=== PATIENT | female | born 1965 | race African-American/Black ===

== ENCOUNTER 2016-06-10 09:38 | Day surgery (SDC) | payer OTHER ==
[2016-06-10] MEDS ORDERED: LACTATED RINGERS 1,000 ML IV ONE (09:59)
[2016-06-10] MEDS ORDERED: SIMETHICONE 40 MG/0.6 ML 30 ML BOTTLE PO ONE (10:37)
[2016-06-10] MEDS ORDERED: fentaNYL 250 MCG/5 ML VIAL IVP ONE (11:11)
[2016-06-10] MEDS ORDERED: MIDAZOLAM 2 MG/2 ML VIAL IVP ONE (11:11)
== END 2016-06-10 09:39 | disposition home or self-care (01) ==
PROC: 0DJD8ZZ Inspection of Lower Intestinal Tract, Via Natural or Artificial Opening Endoscopic (ICD-10-PCS; principal; 2016-06-10 10:45)
PROC: 0DB68ZX Excision of Stomach, Via Natural or Artificial Opening Endoscopic, Diagnostic (ICD-10-PCS; 2016-06-10 10:45)
DX: Z12.11 Encounter for screening for malignant neoplasm of colon (principal); K21.9 Gastro-esophageal reflux disease without esophagitis; K57.30 Diverticulosis of large intestine without perforation or abscess without bleeding; K64.8 Other hemorrhoids; K44.9 Diaphragmatic hernia without obstruction or gangrene; J30.9 Allergic rhinitis, unspecified; I10 Essential (primary) hypertension; Z80.1 Family history of malignant neoplasm of trachea, bronchus and lung; Z82.49 Family history of ischemic heart disease and other diseases of the circulatory system
CPT/HCPCS: 43239; 45378; 87081; A9270; J3010; J7120

== ENCOUNTER 2016-10-08 09:43 | Outpatient (CLI) | payer OTHER ==
--- NOTE | 2016-10-11 10:28 | Mammography Report ---
DIGITAL BILATERAL SCREENING MAMMOGRAM: 10/08/2016 CLINICAL HISTORY: A 51-year-old female in for routine screening mammogram. Patient has no family hi story of breast cancer. Patient has had no history of breast surgeries. COMPARISON: 01/27/2008, 07/24/2009, 10/07/2011, 10/27/2012, 11/18/2013, 11/18/2014. TECHNIQUE: Craniocaudad and oblique lateral views of each breast were obtained with [facility] Full Fie ld digital mammography. Axillary exaggerated craniocaudad views of both breasts were added to complem ent the examination. FINDINGS: Breast parenchyma consists of scattered fibroglandular densities. No significant clusters of calcification are seen. There is an asymmetrical density measuring 1.4 cm in the 2 o'clock positio n of the left breast that was not definitely seen on preceding exams. It is 8-9 cm posterior superior to the left nipple. Recommend patient return for coned down compression craniocaudad and oblique lat eral views as well as a mediolateral view for further evaluation. If indicated, left breast ultrasoun d should also be obtained. No other changes are seen. IMPRESSION: AN 1.4 CM ASYMMETRICAL DENSITY IS NOW NOTED IN THE 2 O'CLOCK POSITION OF THE LEFT BREAST . THIS WAS NOT SEEN ON PRECEDING EXAMS. RECOMMEND PATIENT RETURN FOR ADDITIONAL VIEWS OF THE LEFT SAMY AST AND, IF INDICATED, LEFT BREAST ULTRASOUND. BIRADS CATEGORY 0-INCOMPLETE. NEEDS ADDITIONAL IMAGING EVALUATION. ADDITIONAL VIEW OF THE LEFT BREAST AND, IF INDICATED, LEFT BREAST ULTRASOUND. STANDARD QUALIFYING STATEMENTS 1. This examination was reviewed with the aid of Computer-Aided Detection (CAD). 2. A negative or benign imaging report should not delay biopsy if clinically suspicious findings are present. Consider surgical consultation if warranted. More than 5% of cancers are not identified by i maging. 3. Dense breasts may obscure an underlying neoplasm. JOB #: [id number] EXT JOB #:[id number]
== END 2016-10-08 09:44 | disposition home or self-care (01) ==
LOC: DI.N 09:43
PROVIDERS: ATTEND Family Medicine
DX: Z12.31 Encounter for screening mammogram for malignant neoplasm of breast (principal); R92.8 Other abnormal and inconclusive findings on diagnostic imaging of breast
CPT/HCPCS: 77067

== ENCOUNTER 2016-10-17 13:50 | Outpatient (CLI) | payer OTHER | END 2016-10-17 13:51 | disposition home or self-care (01) | LOC: SC 13:50 | PROVIDERS: ATTEND Nurse Practitioner Family | DX: G47.33 Obstructive sleep apnea (adult) (pediatric) (principal) | CPT/HCPCS: 99212; 99214 ==

== ENCOUNTER 2016-10-31 10:57 | Outpatient (CLI) | payer OTHER ==
--- NOTE | 2016-10-31 18:53 | Mammography Report ---
DIGITAL DIAGNOSTIC LEFT MAMMOGRAM: 10/31/2016 CLINICAL INDICATION: Possible developing density left central posterior breast. COMPARISON: 10/08/2016, 11/18/2014, 11/18/2013, 10/27/2012, 10/07/2011, 10/03/2010, 07/24/2009. TECHNIQUE: Left true lateral and spot compression views. The left breast again demonstrates scattered fibroglandular densities. The possible asymmetry in the left posterior central breast does not persist on additional compression. No underlying mass lesion or architectural distortion is identified. IMPRESSION: NEGATIVE EXAMINATION. RECOMMENDATION: ROUTINE ANNUAL SCREENING UNLESS OTHERWISE CLINICALLY INDICATED. BIRADS CATEGORY: 1, NEGATIVE. STANDARD QUALIFYING STATEMENTS 1. This examination was reviewed with the aid of Computed-Aided Detection (CAD). 2. A negative or benign imaging report should not delay biopsy if clinically suspicious findings are present. Consider surgical consultation if warranted. More than 5% of cancers are not identified b y imaging. 3. Dense breasts may obscure an underlying neoplasm. JOB #: [id number] EXT JOB #:[id number]
== END 2016-10-31 10:58 | disposition home or self-care (01) ==
LOC: DI 10:57
PROVIDERS: ATTEND Family Medicine
DX: N63 Unspecified lump in breast (principal)

== ENCOUNTER 2016-11-19 15:26 | Outpatient (CLI) | payer OTHER ==
--- NOTE | 2016-11-19 17:01 | Ultrasound Preliminary Report ---
Exam: US Duplex Ext Veins Right IMPRESSION: No evidence for deep venous thrombosis. [facility] SITE ID: [id number]
--- NOTE | 2016-11-19 17:04 | Ultrasound Report ---
EXAM: RIGHT LOWER EXTREMITY VENOUS ULTRASOUND EXAM DATE: 11/19/2016 04:42 PM. CLINICAL HISTORY: CALF PAIN, RIGHT. COMPARISON: None. TECHNIQUE: Real-time sonographic vascular imaging was performed by the quality assurance consultant through the lower extremity utilizing both color-flow and Doppler spectral analysis. Multiple nutrition representative static deon ges were saved for review. FINDINGS: Common Femoral Vein (CFV): Normal. CFV-GSV Junction: Normal. Profunda Femoral Vein (PFV): Normal. Femoral Vein (FV) Prox: Normal. Femoral Vein (FV) Mid: Normal. Femoral Vein (FV) Dist: Normal. Popliteal Vein: Normal. Posterior Tibial Veins: Normal. Peroneal Veins: Normal. Contralateral Side CFV: Normal. Other: None. IMPRESSION: No evidence for deep venous thrombosis. [facility] Referring Provider Line: [phone] SITE ID: [id number]
== END 2016-11-19 15:27 | disposition home or self-care (01) ==
LOC: DI 15:26
PROVIDERS: ATTEND Physician Assistant Medical
DX: M79.661 Pain in right lower leg (principal)

== ENCOUNTER 2016-11-27 13:08 | Outpatient (CLI) | payer OTHER ==
--- NOTE | 2016-11-28 08:59 | Ultrasound Report ---
BILATERAL ABIs: 11/27/2016 CLINICAL INDICATION: Right calf pain. TECHNIQUE: Real-time sonographic vascular imaging was performed by the machinist helper through the extremities utilizing both color-flow and Doppler flow analysis. Multiple sales representative sales manager static images were saved for review. RIGHT SIDE SITE [employer] DRIVER 54 triphasic DPA 58 triphasic LEFT SIDE SITE PSV [employer] DR[employer] 71 triphasic DPA 48 triphasic TECHNIQUE: Real-time scanning was performed. SYSTOLIC PRESSURES RIGHT LEFT BRACHIAL ARTERY 144/74 154/91 POSTERIOR TIBIAL ARTERY 167/86 165/77 ANTERIOR TIBIAL ARTERY --- --- PERONEAL ARTERY --- --- ANKLE/ARM INDEX 1.16 1.07 FINDINGS: ABIs are normal, measuring 1.16 on the right and 1.07 on the left. IMPRESSION: NORMAL ABIs. [facility]
== END 2016-11-27 13:09 | disposition home or self-care (01) ==
LOC: DI 13:08
PROVIDERS: ATTEND Physician Assistant Medical
DX: M79.661 Pain in right lower leg (principal)
CPT/HCPCS: 93922

== ENCOUNTER 2017-04-01 14:29 | Outpatient (CLI) | payer OTHER | END 2017-04-01 14:30 | disposition home or self-care (01) | LOC: SC 14:29 | PROVIDERS: ATTEND Nurse Practitioner Family | DX: G47.33 Obstructive sleep apnea (adult) (pediatric) (principal); I10 Essential (primary) hypertension | CPT/HCPCS: 99212; 99214 ==

== ENCOUNTER 2017-06-12 13:32 | Outpatient (CLI) | payer OTHER | END 2017-06-12 13:33 | disposition home or self-care (01) | LOC: SC 13:32 | PROVIDERS: ATTEND Nurse Practitioner Family | DX: G47.33 Obstructive sleep apnea (adult) (pediatric) (principal) | CPT/HCPCS: 99212; 99215 ==

== ENCOUNTER 2017-07-28 15:41 | Outpatient (CLI) | payer OTHER | END 2017-07-28 15:42 | disposition home or self-care (01) | LOC: SC 15:41 | PROVIDERS: ATTEND Nurse Practitioner Family | DX: G47.33 Obstructive sleep apnea (adult) (pediatric) (principal) | CPT/HCPCS: 99212; 99214 ==

== ENCOUNTER 2017-09-01 15:11 | Outpatient (CLI) | payer OTHER | END 2017-09-01 15:12 | disposition home or self-care (01) | LOC: SC 15:11 | PROVIDERS: ATTEND Nurse Practitioner Family | DX: G47.33 Obstructive sleep apnea (adult) (pediatric) (principal) | CPT/HCPCS: 99214 ==

== ENCOUNTER 2017-10-09 13:48 | Outpatient (CLI) | payer OTHER | END 2017-10-09 13:49 | disposition home or self-care (01) | LOC: SC 13:48 | PROVIDERS: ATTEND Nurse Practitioner Family | DX: G47.33 Obstructive sleep apnea (adult) (pediatric) (principal) | CPT/HCPCS: 99212; 99214 ==

== ENCOUNTER 2017-11-12 10:39 | Outpatient (CLI) | payer OTHER ==
--- NOTE | 2017-11-13 16:19 | Mammography Report ---
Procedure Date: 11/12/2017 Accession Number: [id number] / [id number] Procedure: MGN - Screening Mammo Dig Bilat CPT Code: FULL RESULT: EXAM: Screening Mammo Dig Bilat DATE: 11/12/2017 10:56 AM CLINICAL HISTORY: 52-year-old female with history of late childbearing presents for screening mammogram. TECHNIQUE: Bilateral CC and MLO views were obtained. COMPARISON: 10/08/2016, 11/18/2014, 11/18/2013, 10/27/2012. FINDINGS: The breasts demonstrate scattered fibroglandular densities bilaterally. Coarse typically benign calcifications are identified. No suspicious masses, clustered microcalcifications, or regions of architectural distortion are identified. IMPRESSION: Benign findings RECOMMENDATION: Routine annual screening unless otherwise clinically indicated. BIRADS CATEGORY 2: Benign findings STANDARD QUALIFYING STATEMENTS: 1. This examination was reviewed with the aid of Computer-Aided Detection (CAD). 2. A negative or benign imaging report should not delay biopsy if clinically suspicious findings are present. Consider surgical consultation if warrented. More than 5% of cancers are not identified by imaging. 3. Dense breasts may obscure an underlying neoplasm.
== END 2017-11-12 10:40 | disposition home or self-care (01) ==
LOC: DI.N 10:39
PROVIDERS: ATTEND Physician Assistant Medical
DX: Z12.31 Encounter for screening mammogram for malignant neoplasm of breast (principal)
CPT/HCPCS: 77067

== ENCOUNTER 2018-12-02 08:33 | Outpatient (CLI) | payer OTHER ==
--- NOTE | 2018-12-03 09:54 | Mammography Report ---
Reason: SCREENING MAMMO Procedure Date: 12/02/2018 Accession Number: [id number] / [id number] Procedure: MGN - Screening Mammo Dig Bilat CPT Code: FULL RESULT: EXAM: Screening Mammo Dig Bilat DATE: 12/02/2018 8:56 AM CLINICAL HISTORY: Screening encounter. History of late childbearing and early menses. TECHNIQUE: (B) - Bilateral CC, laterally exaggerated CC, MLO views were obtained. COMPARISON: 11/12/2017 through 11/18/2013. PARENCHYMAL PATTERN: (D) - The breast(s) demonstrate(s) heterogeneously dense fibroglandular parenchyma. FINDINGS: There are coarse typically benign calcifications. There are no suspicious masses, calcifications, or areas of distortion. IMPRESSION: Benign findings. BI-RADS category 2. RECOMMENDATION: (ANNUAL) - Recommend routine annual screening mammography. BI-RADS CATEGORY: (2) - Benign Findings. STANDARD QUALIFYING STATEMENTS: 1. This examination was not reviewed with the aid of Computer-Aided Detection (CAD). 2. A negative or benign imaging report should not preclude biopsy if clinically suspicious findings are present. 3. Dense breasts may obscure an underlying neoplasm. 4. This examination was reviewed without the aid of 3D breast imaging (tomosynthesis).
== END 2018-12-02 08:34 | disposition home or self-care (01) ==
LOC: DI.N 08:33
DX: Z12.31 Encounter for screening mammogram for malignant neoplasm of breast (principal)
CPT/HCPCS: 77067

== ENCOUNTER 2019-09-16 10:42 | Outpatient (CLI) | payer OTHER ==
--- NOTE | 2019-09-16 20:59 | XRAY Report ---
Reason: MEDIAL COLLATERAL LIGAMENT INSTABILITY Procedure Date: 09/16/2019 Accession Number: [id number] / [id number] Procedure: XR - Knee 3 View RT CPT Code: Final Report FULL RESULT: EXAM: RIGHT KNEE RADIOGRAPHY EXAM DATE: 09/16/2019 10:58 AM. CLINICAL HISTORY: MEDIAL COLLATERAL LIGAMENT INSTABILITY. COMPARISON: None. TECHNIQUE: 3 views. FINDINGS: Bones: Old infarct versus enchondroma and proximal right lateral tibial metaphysis. No fractures or bone lesions. Joints: Normal. No effusion. No subluxations. Soft Tissues: Normal. No soft tissue swelling. IMPRESSION: No acute osseous or articular abnormality. [facility]
== END 2019-09-16 10:43 | disposition home or self-care (01) ==
LOC: DI 10:42
PROVIDERS: ATTEND Family Medicine
DX: M23.8X9 Other internal derangements of unspecified knee (principal)

== ENCOUNTER 2020-03-09 11:05 | Outpatient (CLI) | payer OTHER ==
--- NOTE | 2020-03-09 14:30 | XRAY Report ---
PROCEDURE: Knee 4 View RT INDICATIONS: MEDIAL MENISCUS TEAR, RT TECHNIQUE: 4 views of the right knee(s) were acquired. COMPARISON: 09/16/2019 FINDINGS: Bones: No acute fractures or dislocations. Minimal tricompartmental degenerative changes of the rig ht knee. Small distal quadriceps enthesophyte at the superior pole of the patella. Stable sclerotic f ocus overlying the lateral tibial plateau. Otherwise, no suspicious bony lesions. Soft tissues: No joint effusion. No suspicious soft tissue calcifications. IMPRESSION: 1. Minimal tricompartmental osteoarthrosis of the right knee. 2. Distal quadriceps enthesopathy. 3. Stable size and appearance of lateral tibial plateau sclerotic focus. Reviewed by: Nilton Casanova MD on 03/09/2020 2:29 PM PST Approved by: Nilton Casanova MD on 03/09/2020 2:29 PM PST Station ID: [id number]
== END 2020-03-09 23:59 | disposition home or self-care (01) ==
LOC: DI.N 11:05
PROVIDERS: ATTEND Orthopaedic Surgery
DX: S83.241A Other tear of medial meniscus, current injury, right knee, initial encounter (principal); M17.11 Unilateral primary osteoarthritis, right knee

== ENCOUNTER 2020-03-13 07:19 | Outpatient (CLI) | payer OTHER ==
[2020-03-13 11:36] LABS: BASOPHILS % (AUTO) 0.8 %; EOSINOPHILS # (AUTO) 0.2 10^3/uL (0.0-0.7); EOSINOPHILS % (AUTO) 4.8 %; HGB - HEMOGLOBIN 12.7 g/dL (12.0-16.0); LYMPHOCYTES # (AUTO) 1.5 10^3/uL (1.5-3.5); LYMPHOCYTES % (AUTO) 40.3 %; MEAN CORPUSCULAR HEMOGLOBIN 29.1 pg (27.0-31.0); MEAN CORPUSCULAR HGB CONC 31.9 g/dL (32.0-36.0); MEAN CORPUSCULAR VOLUME 91.3 fL (81.0-99.0); MEAN PLATELET VOLUME 12.9 fL (7.9-10.8); MONOCYTES # (AUTO) 0.4 10^3/uL (0.0-1.0); MONOCYTES % (AUTO) 11.2 %; NEUTROPHILS # (AUTO) 1.6 10^3/uL (1.5-6.6); NEUTROPHILS % (AUTO) 42.9 %; PLT - PLATELET COUNT 123 10^3/uL (130-450); RED BLOOD COUNT 4.36 10^6/uL (4.20-5.40); RED CELL DISTRIBUTION WIDTH 14.9 % (12.0-15.0); WHITE BLOOD COUNT 3.8 x10^3/uL (4.8-10.8)
[2020-03-13 12:11] LABS: ALBUMIN 3.8 g/dL (3.2-5.5); ALBUMIN/GLOBULIN RATIO 1.2 (1.0-2.2); ALKALINE PHOSPHATASE 56 IU/L (42-121); ALT ALANINE AMINOTRANSFERASE 21 IU/L (10-60); AST ASPARTATE AMINOTRANSFERASE 20 IU/L (10-42); BILIRUBIN,TOTAL 0.9 mg/dL (0.2-1.0); BUN - BLOOD UREA NITROGEN 14 mg/dL (6-20); CALCIUM 9.3 mg/dL (8.5-10.3); CARBON DIOXIDE - CO2 26 mmol/L (21-32); CHLORIDE 104 mmol/L (101-111); CHOL/HDL RATIO 2.4 (<4.4); CHOLESTEROL 178 mg/dL; CREATININE 0.8 mg/dL (0.4-1.0); GLUCOSE 88 mg/dL (70-100); HDL CHOLESTEROL 74 mg/dL; LDL CHOLESTEROL,CALCULATED 93 mg/dL; LDL/HDL RATIO 1.3 (<4.4); SODIUM 139 mmol/L (135-145); TOTAL PROTEIN 6.9 g/dL (6.7-8.2); VLDL CHOLESTEROL 11 mg/dL
== END 2020-03-13 07:20 | disposition home or self-care (01) ==
LOC: LAB.WCP 07:19
PROVIDERS: ATTEND Family Medicine
DX: I10 Essential (primary) hypertension (principal); D69.49 Other primary thrombocytopenia; R53.83 Other fatigue
CPT/HCPCS: 36415; 80053; 80061; 83721; 84443; 85025

== ENCOUNTER 2020-05-05 07:45 | Outpatient (CLI) | payer OTHER | END 2020-05-05 07:46 | disposition home or self-care (01) | LOC: LAB.R 07:45 | PROVIDERS: ATTEND Orthopaedic Surgery | DX: Z01.812 Encounter for preprocedural laboratory examination (principal); Z20.822 Contact with and (suspected) exposure to COVID-19 ==

== ENCOUNTER 2020-05-10 10:02 | Day surgery (SDC) | payer OTHER ==
[~2020-05-10 10:02] MED LIST: LACTATED RINGERS 1,000 ML IV ONE
--- NOTE | 2020-05-10 10:46 | ANESTHESIA ---
Pre-Anesthesia VS, & Labs - Diagnosis torn right medial meniscus - Procedure right knee arthroscopy, parial medial meniscectomy Height: 5 ft 5 in Weight (kg): 91.9 kg Body Mass Index: 33.7 BMI Classification: Obese - NPO >8 hours - Is Patient ?: Not Applicable - Lab Results Lab results reviewed: Yes Home Medications and Allergies Home Medications: Ambulatory Orders Amlodipine Besylate [Norvasc] 10 mg PO QPM 05/05/20 Ascorbic Acid [Vitamin C] 1,000 mg PO DAILY 05/05/[address] [Voltaren] 75 mg PO DAILY 05/05/20 Omeprazole 20 mg PO BID 05/05/20 Multivitamin [Multivitamins] 1 each PO DAILY 06/10/16 Amlodipine Besylate [Norvasc] 10 mg PO QPM 05/05/20 Ascorbic Acid [Vitamin C] 1,000 mg PO DAILY 05/05/[address] [Voltaren] 75 mg PO DAILY 05/05/20 Omeprazole 20 mg PO BID 05/05/20 Allergies/Adverse Reactions: Allergies Allergy/AdvReac Type Severity Reaction Status Date / Time acetaminophen [From Vicodin] Allergy Itching Verified 05/09/20 13:47 hydrocodone [From Vicodin] Allergy Itching Verified 05/09/20 13:47 pollen extracts Allergy Rash Verified 05/09/15 07:24 venom-honey bee Allergy Anaphylaxis Verified 05/09/15 07:24 [bee venom (honey bee)] lisinopril AdvReac Unknown Verified 05/09/15 07:24 Anes History & Medical History - Anesthetic History Anesthesia Complications: reports: No previous complications Family history of Anesthesia Complications: Denies Family history of Malignant Hyperthermia: Denies - Medical History Cardiovascular: reports: Hypertension, Other Pulmonary: reports: Sleep apnea Gastrointestinal: reports: GERD, Hiatal hernia Urinary: reports: None Musculoskeletal: reports: Osteoarthritis, Other Endocrine/Autoimmune: reports: None Blood Disorders: reports: Idiopathic thrombocytopenic purpura Skin: reports: None Smoking Status: Never smoker - Surgical History General: Cholecystectomy, Colonoscopy, EGD Gynecologic: Hysterectomy Exam General: Alert, Oriented x3, Cooperative, No acute distress Dental: WNL Mouth Openin Fingerbreadth Neck Mobility: Normal Mallampati classification: II Respiratory: Lungs clear, Normal breath sounds, No respiratory distress, No accessory muscle use Cardiovascular: Regular rate, Normal S1, Normal S2, No murmurs Plan Anesthesia Type: General Consent for Procedure(s) Verified and Reviewed: Yes Code Status: Attempt Resuscitation ASA classification: 2-Mild systemic disease Is this case an emergency?: No
[2020-05-10] MEDS ORDERED: fentaNYL 100 MCG/2 ML VIAL IVP PRN (10:53)
[2020-05-10] MEDS ORDERED: ePHEDrine 50 MG/ML VIAL IVP PRN (10:53)
[2020-05-10] MEDS ORDERED: METOCLOPRAMIDE 10 MG/2 ML VIAL IVP PRN (10:53)
[2020-05-10] MEDS ORDERED: ATROPINE ABBOJECT 1 MG/10 ML SYRINGE IVP PRN (10:53)
[2020-05-10] MEDS ORDERED: NALOXONE 0.4 MG/ML VIAL IVP PRN (10:53)
[2020-05-10] MEDS ORDERED: MORPHINE 2 MG/ML CARPUJECT IVP PRN (10:53)
[2020-05-10] MEDS ORDERED: ONDANSETRON 4 MG/2 ML VIAL IVP PRN (10:53)
[2020-05-10] MEDS ORDERED: LACTATED RINGERS 1,000 ML IV SCH (11:00)
[2020-05-10] MEDS ORDERED: EPINEPHrine 1 MG/ML AMP ONE (11:36)
[2020-05-10] MEDS ORDERED: BUPIVACAINE 0.25% PF 30 ML VIAL ONE (11:37)
[2020-05-10] MEDS ORDERED: MIDAZOLAM 2 MG/2 ML VIAL ONE (11:45)
[2020-05-10] MEDS ORDERED: ONDANSETRON 4 MG/2 ML VIAL ONE (11:45)
[2020-05-10] MEDS ORDERED: LIDOCAINE-MPF 2% 5 ML VIAL ONE (11:45)
[2020-05-10] MEDS ORDERED: fentaNYL 100 MCG/2 ML VIAL ONE ×3 (11:45→13:14)
[2020-05-10] MEDS ORDERED: PROPOFOL 200 MG/20 ML VIAL IVP ONE (11:45)
[2020-05-10] MEDS ORDERED: ACETAMINOPHEN 1,000 MG/100 ML 100 ML IV ONE (12:19)
[2020-05-10] MEDS ORDERED: EPINEPHrine 1 MG/ML AMP IR ONE (12:23)
[2020-05-10] MEDS ORDERED: BACITRACIN ZINC OINT 1 PACKET TOP ONE (12:23)
[2020-05-10] MEDS ORDERED: DEXAMETHASONE 4 MG/ML VIAL ONE (12:26)
--- NOTE | 2020-05-10 12:59 | OPERATIVE REPORT ---
Operative Report - General Procedure Date: 05/10/20 Planned Procedure: Arthroscopy right knee with possible meniscectomy right knee Pre-Op Diagnosis: Degenerative tear medial meniscus right knee Procedure Performed: Arthroscopy right knee, debridement And chondroplastypatella right knee Post Op Diagnosis: Patellar chondromalacia right knee - Procedure Note Primary Surgeon: Leo Delgado MD Secondary Surgeon: Adryan BONILLA Anesthesia Provider: Chanda Pena CRNA Anesthesia Technique: General ET tube Estimated Blood Loss (mL): 5 Indications: This is a 54-year-old woman with injury to her right knee and persistent pain. Her pain to the right knee has been mostly medial sometimes anteromedial as well. We have tried conservative treatment over the past several months and she still has not improved. Her routine radiographs are normal but her MRI scan suggested a torn posterior horn medial meniscus consistent with a degenerative/traumatic tear of the medial meniscus. She did have some definite joint line tenderness medially. She did have symptoms of internal derangement in addition to pain. Findings: She is loose jointed and can slightly hyperextend both knees. She has full motion of both knees. The right knee was ligamentously stable. Her arthroscopic examination revealed a nonspecific suprapatellar synovitis. There was grade 2/4 chondromalacia to the lower or inferior half of the patella. The medial and lateral gutters appeared normal. The anterior and posterior cruciate ligaments were intact. The articular cartilage of the tibiofemoral joint was normal. Both the medial and lateral meniscus were normal and were stable to meniscal traction and probing. There was no sign of a meniscal root tear. Complications: None noted - Other Other Information/Narrative: The patient was brought to the operating room and given a general endotracheal anesthetic. The right knee was examined under anesthesia and was found to be s table. The pneumatic tourniquet was applied to the proximal right thigh over cast padding and secured with a U drape. The right lower extremity was prepped and draped in a sterile manner in the usual fashion. An arthroscopic post was applied to the lateral aspect of the right thigh. A timeout procedure was performed by the entire operating room team and all were in agreement. A 3 portal arthroscopic technique was utilized. Outflow was taken through the lateral suprapatellar portal. The anterolateral portal was used for the diagnostic arthroscope. The anteromedial portal was used for instrument portal. The Hamilton 4 mm 30 degree of black diagnostic arthroscope was used in conjunction with [employer] video camera and [employer] arthroscopic pump. Inflow was brought to the arthroscope using the [employer] arthroscopic pump. Complete diagnostic arthroscopy was performed and was facilitated by the use of an arthroscopic probe. The findings have been documented. The abnormal findings were confined to the patellofemoral joint with grade II chondromalacia involving both patella and femoral trochlea. The medial and lateral menisci were probed as well as the cruciate ligaments. The structures were found to be intact. The medial meniscus was carefully inspected and stressed with traction and probing without finding any peripheral tears or any tears within the body of the medial meniscus. A chondroplasty was performed using the Tiffanie radiofrequency probe with a light brushing technique, care taken to avoid contact with patella or trochlea. The incision sites were closed with 3-0 nylon, sterile dressings applied with Irwin wrap to right knee. Patient tolerated procedure well. Tourniquet was not inflated during the procedure. Physician assistant to the ceo was utilized and felt to be necessary to help manipulate the knee to provide adequate visualization for the arthroscopic procedure, wound closure and dressing.
[2020-05-10] MEDS ORDERED: HYDROcod/ACETAM 10 MG/325 MG TABLET PO PRN (13:08)
[2020-05-10] MEDS ORDERED: KETOROLAC 15 MG/ML VIAL IVP STA (13:08)
[2020-05-10] MEDS ORDERED: LACTATED RINGERS 1,000 ML IV ONE (13:13)
[2020-05-10] MEDS ORDERED: KETOROLAC 30 MG/ML VIAL ONE (13:13)
[2020-05-10] MEDS: HYDROmorphone 0.5 MG/0.5 ML SYRINGE IVP PRN ×2 (13:26→13:36)
[2020-05-10] MEDS ORDERED: HYDROmorphone 1 MG/ML CARPUJECT ONE (13:35)
[2020-05-10] MEDS ORDERED: oxyCODONE 5 MG TABLET PO PRN (13:37)
[2020-05-10] MEDS ORDERED: diphenhydrAMINE INJ 50 MG/ML VIAL ONE (14:09)
[2020-05-10 14:38] VITALS: BP 145/79
[2020-05-10] MEDS ORDERED: oxyCODONE 5 MG TABLET ONE (14:43)
--- NOTE | 2020-05-10 16:29 | ANESTHESIA POST OP EVALUATION ---
Anesthesia Post Eval - Post Anesthesia Eval Vitals: Last Vital Signs Temp 36.3 C L 05/10/20 14:30 Pulse 81 05/10/20 14:30 Resp 16 05/10/20 14:30 BP 145/79 H 05/10/20 14:30 Pulse Ox 100 05/10/20 14:30 CV Function Including HR & BP: positive: Stable Pain Control: positive: Satisfactory Nausea & Vomiting: positive: Negative Mental Status: positive: Baseline Respiratory Status: Airway Patent Hydration Status: Satisfactory Anesthesia Complications: positive: None
== END 2020-05-10 10:03 | disposition home or self-care (01) ==
LOC: SDS 10:02
PROVIDERS: ATTEND Orthopaedic Surgery
DX: M22.41 Chondromalacia patellae, right knee (principal); M65.9 Synovitis and tenosynovitis, unspecified; G47.30 Sleep apnea, unspecified; Z87.891 Personal history of nicotine dependence; M89.9 Disorder of bone, unspecified; E66.9 Obesity, unspecified; Z68.33 Body mass index [BMI] 33.0-33.9, adult; I10 Essential (primary) hypertension; D69.3 Immune thrombocytopenic purpura
CPT/HCPCS: 29877; A9270; J0131; J1170; J1200; J7120

== ENCOUNTER 2020-12-26 07:14 | Outpatient (CLI) | payer OTHER ==
[2020-12-26 12:15] LABS: BASOPHILS % (AUTO) 0.4 %; EOSINOPHILS # (AUTO) 0.1 10^3/uL (0.0-0.7); EOSINOPHILS % (AUTO) 2.5 %; HCT - HEMATOCRIT 42.1 % (37.0-47.0); HGB - HEMOGLOBIN 12.8 g/dL (12.0-16.0); LYMPHOCYTES # (AUTO) 1.7 10^3/uL (1.5-3.5); LYMPHOCYTES % (AUTO) 38.6 %; MEAN CORPUSCULAR HEMOGLOBIN 28.3 pg (27.0-31.0); MEAN CORPUSCULAR HGB CONC 30.4 g/dL (32.0-36.0); MEAN CORPUSCULAR VOLUME 92.9 fL (81.0-99.0); MEAN PLATELET VOLUME 12.8 fL (7.9-10.8); MONOCYTES # (AUTO) 0.5 10^3/uL (0.0-1.0); MONOCYTES % (AUTO) 10.3 %; NEUTROPHILS # (AUTO) 2.2 10^3/uL (1.5-6.6); PLT - PLATELET COUNT 123 10^3/uL (130-450); RED BLOOD COUNT 4.53 10^6/uL (4.20-5.40); RED CELL DISTRIBUTION WIDTH 16.6 % (12.0-15.0); WHITE BLOOD COUNT 4.5 x10^3/uL (4.8-10.8)
[2020-12-26 12:41] LABS: THYROID STIMULATING HORMONE 1.68 uIU/mL (0.34-5.60)
[2020-12-26 13:05] LABS: ALBUMIN 3.8 g/dL (3.2-5.5); ALBUMIN/GLOBULIN RATIO 1.1 (1.0-2.2); ALKALINE PHOSPHATASE 70 IU/L (42-121); ALT ALANINE AMINOTRANSFERASE 19 IU/L (10-60); AST ASPARTATE AMINOTRANSFERASE 17 IU/L (10-42); BILIRUBIN,TOTAL 0.8 mg/dL (0.2-1.0); BUN - BLOOD UREA NITROGEN 9 mg/dL (6-20); CALCIUM 9.7 mg/dL (8.5-10.3); CARBON DIOXIDE - CO2 26 mmol/L (21-32); CHLORIDE 105 mmol/L (101-111); CHOLESTEROL 172 mg/dL; CREATININE 0.9 mg/dL (0.4-1.0); GFR - MDRD 79 (>89); GLUCOSE 82 mg/dL (70-100); HDL CHOLESTEROL 86 mg/dL; LDL CHOLESTEROL,CALCULATED 73 mg/dL; LDL/HDL RATIO 0.8 (<4.4); POTASSIUM 4.1 mmol/L (3.5-5.0); SODIUM 141 mmol/L (135-145); TOTAL PROTEIN 7.2 g/dL (6.7-8.2); TRIGLYCERIDES 65 mg/dL; VLDL CHOLESTEROL 13 mg/dL
== END 2020-12-26 23:59 | disposition home or self-care (01) ==
LOC: LAB.WCP 07:14
PROVIDERS: ATTEND Physician Assistant Medical
DX: Z00.00 Encounter for general adult medical examination without abnormal findings (principal); D69.49 Other primary thrombocytopenia
CPT/HCPCS: 36415; 80053; 80061; 83721; 84443; 85025

== ENCOUNTER 2021-01-13 10:10 | Outpatient (CLI) | payer OTHER ==
--- NOTE | 2021-01-13 11:01 | XRAY Report ---
PROCEDURE: Hip w/Pelvis 2-3V LT INDICATIONS: TROCHANTERIC BURSITIS TECHNIQUE: AP pelvis with lateral view(s) of the left hip(s). COMPARISON: 01/15/2019, 07/18/2015 FINDINGS: Bones: No fractures or dislocations. Pelvic ring appears intact. No suspicious bony lesions. Soft tissues: The visualized bowel gas pattern is normal. No suspicious soft tissue calcifications. IMPRESSION: No significant plain film abnormality is seen. If it would be helpful for clinical management decision making, please consider a dedicated hip MRI f or further evaluation (assuming that there is no contraindication). This should be performed accordi ng to the arthrogram protocol, if there is strong clinical concern for a labral abnormality. Reviewed by: Sandeep Mccurdy MD on 01/13/2021 10:00 AM W[facility] Approved by: Sandeep Mccurdy MD on 01/13/2021 10:00 AM WILY Station ID: [id number]
== END 2021-01-13 10:11 | disposition home or self-care (01) ==
LOC: DI.N 10:10
PROVIDERS: ATTEND Physician Assistant Medical
DX: M70.62 Trochanteric bursitis, left hip (principal)

== ENCOUNTER 2021-10-30 09:31 | Outpatient (CLI) | payer OTHER ==
--- NOTE | 2021-10-30 11:52 | XRAY Report ---
PROCEDURE: Lumbar Spine 2 View INDICATIONS: LUMBAR RADICULOPATHY TECHNIQUE: 3 views of the lumbar spine were acquired. COMPARISON: None. FINDINGS: Bones: 5 [id number] vertebrae are present. Minimal left convexity curvature centered at L3. 2 m m retrolisthesis of L5 on S1, 4 mm retrolisthesis L4 and L5, likely degenerative. Mild multilevel deg enerative changes with disc height loss and endplate spurring, most pronounced at L5-S1. Facet degene rative changes also demonstrated at this level. No vertebral body compression fractures. No suspicio us bony lesions. Soft tissues: Overlying bowel gas pattern is normal. No suspicious soft tissue calcifications. [place] l clips projecting over the right upper quadrant of the abdomen could be from prior cholecystectomy. IMPRESSION: Mild degenerative changes of the lumbar spine most pronounced at L5-S1. Reviewed by: Ace aWshington MD on 10/30/2021 11:50 AM PDT Approved by: Ace Washington MD on 10/30/2021 11:50 AM PDT Station ID: [id number]
== END 2021-10-30 09:32 | disposition home or self-care (01) ==
LOC: DI.N 09:31
PROVIDERS: ATTEND Physician Assistant Medical
DX: M47.816 Spondylosis without myelopathy or radiculopathy, lumbar region (principal); M47.817 Spondylosis without myelopathy or radiculopathy, lumbosacral region; M51.36 Other intervertebral disc degeneration, lumbar region; M51.37 Other intervertebral disc degeneration, lumbosacral region; M43.17 Spondylolisthesis, lumbosacral region

== ENCOUNTER 2021-11-15 08:11 | Outpatient (CLI) | payer OTHER ==
--- NOTE | 2021-11-16 12:35 | Mammography Report ---
BILATERAL DIGITAL SCREENING MAMMOGRAM 3D/2D: 11/15/2021 CLINICAL: Routine screening. Comparison is made to exams dated: 12/02/2018 mammogram, 11/12/2017 mammogram, 10/08/2016 mammogram, mammogram, 11/18/2013 mammogram, and 10/27/2012 mammogram - [facility]. There are scattered fibroglandular elements in both breasts. No significant masses, calcifications, or other findings are seen in either breast. There has been no significant interval change. IMPRESSION: NEGATIVE There is no mammographic evidence of malignancy. A 1 year screening mammogram is recommended. Based on the Tyrer Cuzick model (a risk assessment model) the patients lifetime risk is 7.8% and her 10 year risk is 2.5%. According to the ACR, ACS, and NCCN guidelines, an annual breast MRI exam priyank g with mammogram is recommended if the patients lifetime risk is 20% or greater. This exam was interpreted at Station ID: [id number]. NOTE: For mammograms, a report in lay terms will be sent to the patient. Approximately 15% of breast malignancies will not be visualized mammographically. In the management of a palpable breast mass, a negative mammogram must not discourage biopsy of a clinically suspicious lesion. Electronically Signed By: Erasmo Hernandez acr/kathyrad:11/15/2021 09:07:51 ACR BI-RADS Category 1: Negative 3341F PARENCHYMAL PATTERN: (A) - The breast(s) demonstrate(s) scattered fibroglandular densities. BI-RADS CATEGORY: (1) - 1 RECOMMENDATION: (ANNUAL) - Recommend routine annual screening mammography. [id number] 1 year screening LATERALITY: (B)
== END 2021-11-15 08:12 | disposition home or self-care (01) ==
LOC: DI.N 08:11
DX: Z12.31 Encounter for screening mammogram for malignant neoplasm of breast (principal)

== ENCOUNTER 2022-01-19 09:53 | Outpatient (CLI) | payer OTHER ==
[2022-01-19 18:43] LABS: BASOPHILS % (AUTO) 0.7 %; EOSINOPHILS # (AUTO) 0.2 10^3/uL (0.0-0.7); EOSINOPHILS % (AUTO) 4.1 %; HGB - HEMOGLOBIN 13.1 g/dL (12.0-16.0); LYMPHOCYTES # (AUTO) 1.5 10^3/uL (1.5-3.5); LYMPHOCYTES % (AUTO) 34.9 %; MEAN CORPUSCULAR HEMOGLOBIN 28.9 pg (27.0-31.0); MEAN CORPUSCULAR VOLUME 90.5 fL (81.0-99.0); MEAN PLATELET VOLUME 13.1 fL (7.9-10.8); MONOCYTES # (AUTO) 0.5 10^3/uL (0.0-1.0); MONOCYTES % (AUTO) 10.5 %; NEUTROPHILS # (AUTO) 2.2 10^3/uL (1.5-6.6); NEUTROPHILS % (AUTO) 49.6 %; PLT - PLATELET COUNT 145 10^3/uL (130-450); RED BLOOD COUNT 4.53 10^6/uL (4.20-5.40); RED CELL DISTRIBUTION WIDTH 15.5 % (12.0-15.0); WHITE BLOOD COUNT 4.4 x10^3/uL (4.8-10.8)
[2022-01-19 18:58] LABS: THYROID STIMULATING HORMONE 0.65 uIU/mL (0.34-5.60)
[2022-01-19 19:08] LABS: ALBUMIN 3.8 g/dL (3.2-5.5); ALBUMIN/GLOBULIN RATIO 1.2 (1.0-2.2); ALKALINE PHOSPHATASE 81 IU/L (42-121); ALT ALANINE AMINOTRANSFERASE 18 IU/L (10-60); AST ASPARTATE AMINOTRANSFERASE 21 IU/L (10-42); BUN - BLOOD UREA NITROGEN 10 mg/dL (6-20); CALCIUM 9.4 mg/dL (8.5-10.3); CARBON DIOXIDE - CO2 28 mmol/L (21-32); CHLORIDE 102 mmol/L (101-111); CHOL/HDL RATIO 2.3 (<4.4); CHOLESTEROL 168 mg/dL; CREATININE 0.9 mg/dL (0.4-1.0); GFR - MDRD 78 (>89); GLUCOSE 90 mg/dL (70-100); HDL CHOLESTEROL 74 mg/dL; LDL CHOLESTEROL,CALCULATED 84 mg/dL; LDL/HDL RATIO 1.1 (<4.4); POTASSIUM 3.7 mmol/L (3.5-5.0); SODIUM 136 mmol/L (135-145); TRIGLYCERIDES 49 mg/dL; VLDL CHOLESTEROL 10 mg/dL
== END 2022-01-19 09:54 | disposition home or self-care (01) ==
LOC: LAB.N 09:53
PROVIDERS: ATTEND Physician Assistant Medical
DX: Z00.00 Encounter for general adult medical examination without abnormal findings (principal)
CPT/HCPCS: 36415; 80053; 80061; 83721; 84443; 85025

== ENCOUNTER 2022-11-20 10:15 | Outpatient (CLI) | payer OTHER ==
--- NOTE | 2022-11-21 09:21 | Mammography Report ---
BILATERAL DIGITAL SCREENING MAMMOGRAM 3D/2D: 11/20/2022 CLINICAL: Routine screening. Comparison is made to exams dated: 11/15/2021 mammogram, 12/02/2018 mammogram, 11/12/2017 mammogram, mammogram, 11/18/2014 mammogram, and 11/18/2013 mammogram - [facility]. There are scattered areas of fibroglandular density in both breasts (category b / 25%-50% glandular t issue). No significant masses, calcifications, or other findings are seen in either breast. There has been no significant interval change. IMPRESSION: NEGATIVE There is no mammographic evidence of malignancy. A 1 year screening mammogram is recommended. Based on the Tyrer Cuzick model (a risk assessment model) the patients lifetime risk is 7.7% and her 10 year risk is 2.6%. According to the ACR, ACS, and NCCN guidelines, an annual breast MRI exam priyank g with mammogram is recommended if the patients lifetime risk is 20% or greater. This exam was interpreted at Station ID: [id number]. NOTE: For mammograms, a report in lay terms will be sent to the patient. Approximately 15% of breast malignancies will not be visualized mammographically. In the management of a palpable breast mass, a negative mammogram must not discourage biopsy of a clinically suspicious lesion. Electronically Signed By: Lila martinez/lisa:11/20/2022 16:24:34 letter sent: No_Letter ACR BI-RADS Category 1: Negative 3341F PARENCHYMAL PATTERN: (A) - The breast(s) demonstrate(s) scattered fibroglandular densities. BI-RADS CATEGORY: (1) - 1 Mammogram [id number] 1 year screening LATERALITY: (B)
== END 2022-11-20 10:16 | disposition home or self-care (01) ==
LOC: DI.N 10:15
DX: Z12.31 Encounter for screening mammogram for malignant neoplasm of breast (principal)

== ENCOUNTER 2022-12-11 16:17 | Outpatient (CLI) | payer OTHER ==
[2022-12-11 17:47] LABS: BASOPHILS % (AUTO) 0.6 %; EOSINOPHILS # (AUTO) 0.1 10^3/uL (0.0-0.7); EOSINOPHILS % (AUTO) 2.2 %; HCT - HEMATOCRIT 40.6 % (37.0-47.0); HGB - HEMOGLOBIN 12.8 g/dL (12.0-16.0); LYMPHOCYTES # (AUTO) 1.9 10^3/uL (1.5-3.5); LYMPHOCYTES % (AUTO) 35.9 %; MEAN CORPUSCULAR HEMOGLOBIN 28.3 pg (27.0-31.0); MEAN CORPUSCULAR HGB CONC 31.5 g/dL (32.0-36.0); MEAN CORPUSCULAR VOLUME 89.8 fL (81.0-99.0); MEAN PLATELET VOLUME 13.9 fL (7.9-10.8); MONOCYTES # (AUTO) 0.6 10^3/uL (0.0-1.0); MONOCYTES % (AUTO) 11.3 %; NEUTROPHILS # (AUTO) 2.7 10^3/uL (1.5-6.6); NEUTROPHILS % (AUTO) 49.8 %; PLT - PLATELET COUNT 126 10^3/uL (130-450); RED BLOOD COUNT 4.52 10^6/uL (4.20-5.40); RED CELL DISTRIBUTION WIDTH 16.2 % (12.0-15.0); WHITE BLOOD COUNT 5.4 x10^3/uL (4.8-10.8)
== END 2022-12-11 16:18 | disposition home or self-care (01) ==
LOC: LAB.N 16:17
PROVIDERS: ATTEND Nurse Practitioner Family
DX: L04.9 Acute lymphadenitis, unspecified (principal)
CPT/HCPCS: 36415; 85025

== ENCOUNTER 2022-12-25 16:38 | Outpatient (CLI) | payer OTHER ==
--- NOTE | 2022-12-26 19:59 | Ultrasound Report ---
PROCEDURE: Head or Neck Soft Tissue INDICATIONS: ENLARGED THYROID, ACUTE LYMPHADENITIS TECHNIQUE: Real-time scanning was performed of the thyroid gland, with image documentation. COMPARISON: None FINDINGS: Right: Thyroid lobe measures 5.2 x 1.6 x 2.2 cm, and is homogeneous in echotexture. Left: Thyroid lobe measures 5.1 x 1.3 x 1.8 cm, and is homogenous in echotexture. Isthmus: 4.7 mm thick. Nodule number: One Location: Isthmus Size: 0.8 x 0.5 x 0.7 cm. Composition: Spongiform. Echogenicity: Isoechoic. Shape: wider than tall. Margins: Smooth (0 points). Echogenic foci: None (0 points). Total points: 1 ACR TI-RADS category: 1. Nodule number: Two Location: Left mid Size: 1.1 x 0.6 x 0.8 cm. Composition: Spongiform. Echogenicity: Isoechoic. Shape: wider than tall. Margins: Smooth (0 points). Echogenic foci: None (0 points). Total points: 1 ACR TI-RADS category: 1. Nodule number: Three Location: Left inferior Size: 0.5 x 0.5 x 0.5 cm. Composition: Spongiform. Echogenicity: Isoechoic. Shape: wider than tall. Margins: Smooth (0 points). Echogenic foci: None (0 points). Total points: 1 ACR TI-RADS category: 1. IMPRESSION: Benign thyroid nodules. No follow-up required ACR TI-RADS definitions and recommendations: TI-RADS 1 (benign): 0 points. FNA not needed. TI-RADS 2 (not suspicious): 2 points. FNA not needed. TI-RADS 3 (mildly suspicious): 3 points. "FNA if 2.5 cm or larger, follow up if 1.5 cm or larger (at 1, 3, and 5 years). TI-RADS 4 (moderately suspicious): 4-6 points. "FNA if 1.5 cm or larger, follow up if 1 cm or larger (at 1, 2, 3, and 5 years). TI-RADS 5 (highly suspicious): 7 points or more. "FNA if 1 cm or larger, follow up if 0.5 cm or larger (every year for 5 years). Reviewed by: Paresh Hull MD on 12/26/2022 6:58 PM WILY Approved by: Paresh Hull MD on 12/26/2022 6:58 PM AKDELICIA Station ID: [id number]
== END 2022-12-25 16:39 | disposition home or self-care (01) ==
LOC: DI 16:38
PROVIDERS: ATTEND Nurse Practitioner Family
DX: L04.9 Acute lymphadenitis, unspecified (principal); E04.2 Nontoxic multinodular goiter

== ENCOUNTER 2023-04-16 06:45 | Outpatient (CLI) | payer OTHER ==
[2023-04-16 07:39] LABS: BASOPHILS % (AUTO) 0.6 %; EOSINOPHILS # (AUTO) 0.1 10^3/uL (0.0-0.7); EOSINOPHILS % (AUTO) 1.2 %; HCT - HEMATOCRIT 42.6 % (37.0-47.0); HGB - HEMOGLOBIN 13.4 g/dL (12.0-16.0); LYMPHOCYTES # (AUTO) 1.3 10^3/uL (1.5-3.5); MEAN CORPUSCULAR HGB CONC 31.5 g/dL (32.0-36.0); MEAN CORPUSCULAR VOLUME 88.9 fL (81.0-99.0); MEAN PLATELET VOLUME 12.6 fL (7.9-10.8); MONOCYTES # (AUTO) 0.5 10^3/uL (0.0-1.0); MONOCYTES % (AUTO) 9.8 %; NEUTROPHILS # (AUTO) 3.2 10^3/uL (1.5-6.6); NEUTROPHILS % (AUTO) 63.2 %; PLT - PLATELET COUNT 137 10^3/uL (130-450); RED BLOOD COUNT 4.79 10^6/uL (4.20-5.40); RED CELL DISTRIBUTION WIDTH 15.9 % (12.0-15.0)
[2023-04-16 07:52] LABS: ALBUMIN 4.1 g/dL (3.2-5.5); ALBUMIN/GLOBULIN RATIO 1.4 (1.0-2.2); ALKALINE PHOSPHATASE 99 IU/L (42-121); ALT ALANINE AMINOTRANSFERASE 20 IU/L (10-60); AST ASPARTATE AMINOTRANSFERASE 20 IU/L (10-42); BILIRUBIN,TOTAL 0.7 mg/dL (0.2-1.0); BUN - BLOOD UREA NITROGEN 10 mg/dL (6-20); CALCIUM 9.7 mg/dL (8.5-10.3); CARBON DIOXIDE - CO2 28 mmol/L (21-32); CHLORIDE 101 mmol/L (101-111); CHOLESTEROL 176 mg/dL; CREATININE 0.8 mg/dL (0.6-1.3); GFR - MDRD 90 (>89); GLUCOSE 108 mg/dL (74-104); HDL CHOLESTEROL 86 mg/dL; LDL CHOLESTEROL,CALCULATED 66 mg/dL; LDL/HDL RATIO 0.8 (<4.4); POTASSIUM 3.6 mmol/L (3.5-4.5); SODIUM 136 mmol/L (135-145); TRIGLYCERIDES 119 mg/dL (48-352); VLDL CHOLESTEROL 24 mg/dL
[2023-04-16 08:09] LABS: THYROID STIMULATING HORMONE 1.36 uIU/mL (0.34-5.60)
--- NOTE | 2023-04-16 14:08 | Ultrasound Report ---
PROCEDURE: Pelvic w/Transvaginal INDICATIONS: ABN MRI TECHNIQUE: Real-time scanning was performed of the pelvic organs, with image documentation. Additional endovagi nal scanning was necessary due to incomplete visualization of the adnexal and endometrial structures by transabdominal scanning. COMPARISON: None. FINDINGS: Uterus: Surgically absent Ovaries: The right ovary measures 1.7 x 1.6 x 2.4 cm, with a calculated ovarian volume of 3.4 cc. T he left ovary measures 1.9 x 1.6 x 1.1 cm, with a calculated ovarian volume of 1.7 cc. There is a 1.6 cm cyst within the right ovary. There is a 1.1 cm cyst within the left ovary. Other: No pathologic free abdominal or pelvic fluid. IMPRESSION: Bilateral ovarian cysts measuring up to 1.6 cm. These are statistically benign, however given free fl uid seen on recent MRI, consider 12 week follow-up to assess stability or resolution. No free fluid is seen on today's ultrasound. Reviewed by: Alberto Lott MD on 04/16/2023 2:07 PM PST Approved by: Alberto Lott MD on 04/16/2023 2:07 PM PST Station ID: [id number]
== END 2023-04-16 06:46 | disposition home or self-care (01) ==
LOC: DI 06:45
PROVIDERS: ATTEND Physician Assistant Medical
DX: N83.202 Unspecified ovarian cyst, left side (principal); N83.201 Unspecified ovarian cyst, right side; Z00.00 Encounter for general adult medical examination without abnormal findings
CPT/HCPCS: 36415; 80053; 80061; 83721; 84443; 85025

== ENCOUNTER 2023-07-26 09:48 | Outpatient (CLI) | payer OTHER ==
--- NOTE | 2023-07-26 19:15 | Ultrasound Report ---
PROCEDURE: Pelvic w/Transvaginal INDICATIONS: BILATERAL OVARIAN CYSTS TECHNIQUE: Real-time scanning was performed of the pelvic organs, with image documentation. Additional endovagi nal scanning was necessary due to incomplete visualization of the adnexal and endometrial structures by transabdominal scanning. COMPARISON: Pelvic ultrasound dated April 16, 2023. FINDINGS: Uterus is surgically absent. Cervical cuff demonstrates nabothian cysts. Ovaries: The right ovary measures 2.4 x 1.9 x 2.8 cm, with a calculated ovarian volume of 6.7 cc. T he left ovary measures 2.4 x 1.6 x 2.1 cm, with a calculated ovarian volume of 4.2 cc. There are 2 ri ght-sided anechoic simple cysts/follicles measuring 2.2 x 1.2 x 2.6 cm and 1.2 x 1.1 x 0.5 cm, previo usly 1.2 x 1.1 x 1.6 cm. There is one anechoic simple cyst/follicle in the left ovary measuring 1.7 x 1.2 x 1.3 cm, previously 1.1 x 1 x 0.8 cm. There are no septations or nodularity. Less than 12 folli cles can be seen in each ovary. No adnexal masses are seen. No cystic lesions measuring greater than 3 cm. Other: No pathologic free abdominal or pelvic fluid. IMPRESSION: 1.There are 2 right-sided anechoic simple cysts/follicles measuring 2.2 x 1.2 x 2.6 cm and 1.2 x 1.1 x 0.5 cm, previously 1.2 x 1.1 x 1.6 cm. No septations or nodularity. 2.There is one anechoic simple cyst/follicle in the left ovary measuring 1.7 x 1.2 x 1.3 cm, previous ly 1.1 x 1 x 0.8 cm. No septations or nodularity. Reviewed by: Van Mathis MD on 07/26/2023 7:14 PM PDT Approved by: Van Mathis MD on 07/26/2023 7:14 PM PDT Station ID: [id number]
== END 2023-07-26 09:49 | disposition home or self-care (01) ==
LOC: DI 09:48
PROVIDERS: ATTEND Physician Assistant Medical
DX: N83.291 Other ovarian cyst, right side (principal); N83.292 Other ovarian cyst, left side

== ENCOUNTER 2023-12-10 07:00 | Outpatient (CLI) | payer OTHER ==
--- NOTE | 2023-12-10 16:59 | Ultrasound Report ---
PROCEDURE: Pelvic w/Transvaginal INDICATIONS: OVARIAN CYST TECHNIQUE: Real-time scanning was performed of the pelvic organs, with image documentation. Additional endovagi nal scanning was necessary due to incomplete visualization of the adnexal and endometrial structures by transabdominal scanning. COMPARISON: Pelvic ultrasound on July 26, 2023. FINDINGS: Uterus: Partial hysterectomy. Nabothian cysts in the cervical cuff. Ovaries: The right ovary measures 2.4 x 1.9 x 2.8 cm cm, with a calculated ovarian volume of 6.7 cc. The left ovary measures 2.4 x 1.6 x 2.1 cm, with a calculated ovarian volume of 4.2 cc. Two right-s ided and single left-sided ovarian anechoic simple cysts. The largest in the right ovary measures 2.2 x 1.2 x 2.6 cm and the smallest measures 1.2 x 1.1 x 0.5 cm. Left ovarian simple cyst measures 1.7 x 1.2 x 1.3 cm. No septations or nodularity. Less than 12 follicles can be seen in each ovary. No adn exal masses are seen. No cystic lesions measuring greater than 3 cm. Other: No pathologic free abdominal or pelvic fluid. IMPRESSION: 1.Two right-sided anechoic simple cysts and single left ovarian anechoic simple cysts which are simil ar in size compared to prior pelvic ultrasound dated July 26, 2023. No septations or nodularity. 2.Hysterectomy. Reviewed by: Van Mathis MD on 12/10/2023 4:58 PM PDT Approved by: Van Mathis MD on 12/10/2023 4:58 PM PDT Station ID: [id number]
== END 2023-12-10 07:01 | disposition home or self-care (01) ==
LOC: DI 07:00
PROVIDERS: ATTEND Physician Assistant Medical
DX: N83.292 Other ovarian cyst, left side (principal); N83.291 Other ovarian cyst, right side; Z90.710 Acquired absence of both cervix and uterus

== ENCOUNTER 2023-12-16 14:41 | Outpatient (CLI) | payer OTHER | END 2023-12-16 14:42 | disposition home or self-care (01) | LOC: LAB.N 14:41 | PROVIDERS: ATTEND Physician Assistant Medical | DX: N83.291 Other ovarian cyst, right side (principal) | CPT/HCPCS: 36415; 82378 ==

== ENCOUNTER 2023-12-30 17:14 | Outpatient (CLI) | payer OTHER | END 2023-12-30 17:15 | disposition home or self-care (01) | LOC: LAB.N 17:14 | PROVIDERS: ATTEND Physician Assistant Medical | DX: N83.291 Other ovarian cyst, right side (principal) | CPT/HCPCS: 36415; 86304 ==

== ENCOUNTER 2024-01-13 15:51 | Outpatient (CLI) | payer OTHER ==
--- NOTE | 2024-01-13 16:31 | Sleep Patient Instructions ---
Sleep Center Visit Summary - Patient Visit Information Reason for Visit: Initial consult for evaluation of sleep disordered breathing and other sleep issues. - Patient Instructions Instructions Attached: Sleep Study Home Monitor Additional Instructions: You will be completing a sleep study, either an in-lab polysomnography (PSG) or home sleep study (HST). You will follow-up in the sleep care office after the sleep study is completed to hear the results and talk about therapy, if needed. You will be called by our office staff to schedule this appointment, but you may contact us with any questions. - Clinic Information Contact: [facility] [address] [place] [address] [email or web address] T: [phone]
--- NOTE | 2024-01-13 16:34 | SLEEP CARE CONSULTATION ---
Information from patient questionnaire entered by Chepe Gooden. I have reviewed and concur with the information entered by Chepe Gooden. This document represents the service I personally performed and the decisions made by me, Beena Scott ARNP. History of Present Illness Service Date and Time: 01/13/2024 1551 Reason for Visit: New patient, Previously diagnosed sleep apnea, Re-establish care Chief Complaint: reports: Snoring, Frequent awakenings at night, Other (Update supplies) Usual bedtime: 8 - 9 Time it takes to fall asleep: Maybe 10 minutes Snores at night: Yes Observed to quit breathing while asleep: Yes Sleeps alone due to snoring: No Number of times waking at night: 2 - 4 times Reasons for waking at night: reports: Choking (daughter heard choking and woke her up), Pain, Bathroom. denies: Snoring, Gasping for air Toss, Turn, or Twitch while sleeping: Yes Recalls having dreams: Yes Usually gets out of bed at: Between 3:30 - 5 AM Feels refreshed in the morning: Yes (Yes and no) Morning headache: No Sleepy or fatigued during the day: Yes Ever fallen asleep while driving: Yes (drowsy driving, no accidens) Takes day naps: No Prior sleep studies: Yes Year and Where: 2015 [facility] Type of Sleep Study: Polysomnography Additional HPI information: MOY AYALA was previously diagnosed to have mild, AHI 5.3, obstructive sleep apnea-hypopnea syndrome here at [facility] 07/29/2015 and comes in today to re- establish care. She says she struggled with the CPAP and eventually returned the CPAP. Her current complaints are frequent night awakenings and snoring. She does not wake up feeling refreshed and is tired during the day. She does not take naps. She has been told that she will have pauses in breathing when asleep. 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 Patient is and lives in [place]. Have you smoked in the past 12 months: No Cigarettes per day (20/pack): 8 Years of smokin Quit date: 07/21/1999 Smoking Pack Years: 6.0 Alcohol use: Yes Alcohol amount and frequency: 2 - 4 drinks on weekends Caffeine use: Yes Caffeine amount and frequency: 1 cup each morning Family History Family history of sleep disordered breathing: Yes Family Hx Sleep Apnea: Mother: Snoring, Sleep apnea - Untreated, Sibling: Snoring, Grandparent: Snoring, Sleep apnea - Untreated Allergies and Home Medications Known drug allergies: Yes (Hydrocodone) Drug allergies reviewed: Yes Home medication list reviewed: Yes (as listed) Allergy and home medication list: Allergies hydrocodone [From Vicodin] Allergy (Verified 05/10/20 10:55) Itching pollen extracts Allergy (Verified 05/10/20 10:55) Rash venom-honey bee [bee venom (honey bee)] Allergy (Verified 05/10/20 10:55) Anaphylaxis lisinopril Adverse Reaction (Verified 05/10/20 10:55) Unknown cough Home Medications Multivitamin [Multivitamins] 1 each PO DAILY 06/10/16 [History] Amlodipine Besylate [Norvasc] 10 mg PO QPM 05/05/20 [History] Ascorbic Acid [Vitamin C] 1,000 mg PO DAILY 05/05/20 [History] Bisi See Rx Instructions .ROUTE .COMPLEX 01/13/24 [History] B12 Active See Rx Instructions .ROUTE .COMPLEX 01/13/24 [History] Flonase See Rx Instructions .ROUTE .COMPLEX 01/13/24 [History] Melatonin See Rx Instructions .ROUTE .COMPLEX 01/13/24 [History] Pantoprazole See Rx Instructions .ROUTE .COMPLEX 01/13/24 [History] Review of Systems Cardiovascular: reports: high blood pressure Gastrointestinal: denies: heartburn Neurological: denies: headaches Psychiatric: denies: anxiety, depression Ear/Nose/Throat: denies: tonsillectomy Musculoskeletal: reports: joint pain (/stiffness), neck pain, back pain Immunologic: reports: sneezing (/runny nose), allergies to food or environment Physical Exam Vital signs obtained and entered by: Beena Washington NP Blood Pressure: 140/85 Cuff size: regular (left arm) Heart Rate: 78 O2 Saturation: 100 Height: 5 ft 5.5 in Weight: 202 lb 6.4 oz Body Mass Index: 33.1 BMI Classification: Obese Neck circumference: 15.5 Nostrils: patent to airflow Mouth and throat: narrow oropharynx Soft palate: long Hard palate: normal Uvula: normal Uvula visualization: 25% Mallampati Class III Tongue: enlarged in size with teeth villasenor on lateral edges Tonsils: 2+ Neck: normal w/o lymphadenopathy or thyromegaly Heart: regular rate and rhythm Lungs: clear bilaterally Impression and Plan 1. Suspected Obstructive Sleep Apnea-Hypopnea Syndrome, as previously diagnosed and as suggested by a history of loud and irregular snoring, observed cessation of breath while asleep, gasping or choking in sleep, frequent awakening during the night, unrefreshed sleep and cognitive impairment. I recommend proceeding to polysomnography to confirm the diagnosis and to assess severity. If the patient has significant sleep disordered breathing, a manual CPAP titration study will also be performed to find the optimal treatment pressure. I informed the patient of what the sleep studies involve and after some discussion, obtained agreement to proceed. The pathophysiology of obstructive sleep apnea- hypopnea syndrome was discussed with the patient and health risks of cardiovascular and cerebrovascular disease if not treated. 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 Patient agreed to plan. 2. Obesity, unspecified. Currently patients BMI is 33.1. Obesity increases the risk of apnea, CPAP pressure requirements and overall health risks especially cardiovascular and diabetes. Thus patient is advised to lose weight. * Schedule polysomnography * Avoid long distance driving or driving when feeling sleepy. * Avoid alcohol, sedative and muscle relaxant around bedtime. * Attempt to lose weight. * Review instructions provided by trained office staff on how to prepare for the sleep study. * Return for follow-up after sleep study completed. Counseling Topics: Weight loss health impact Plan: sleep study and follow up Visit Type: In Office Time Spent with Patient (minutes): 34 Provider Statement: I spent 100% of the Face to Face Visit with the patient with greater than 50% spent counseling the patient and coordination of care.
[2024-01-13 16:40] VITALS: BP 140/85; O2SAT 100
== END 2024-01-13 15:52 | disposition home or self-care (01) ==
LOC: SC 15:51
PROVIDERS: ATTEND Nurse Practitioner Family
DX: G47.33 Obstructive sleep apnea (adult) (pediatric) (principal); E66.9 Obesity, unspecified; Z68.33 Body mass index [BMI] 33.0-33.9, adult
CPT/HCPCS: 99203; 99212